=== PATIENT | male | born 1965 | race African-American/Black ===

== ENCOUNTER 2023-04-23 07:54 | Day surgery (SDC) | payer OTHER ==
[2023-04-20 16:34] VITALS: BMI 35.3
[2023-04-23 08:16] VITALS: TEMP 97.5
[2023-04-23 13:13] VITALS: RESP 17
[2023-04-23 13:18] VITALS: BP 158/86; PULSE 65
== END 2023-04-23 12:30 | disposition left against medical advice (07) ==
LOC: FASU-ENDO 07:54
PROVIDERS: ATTEND Internal Medicine Gastroenterology
PROC: 0DB68ZX Excision of Stomach, Via Natural or Artificial Opening Endoscopic, Diagnostic (ICD-10-PCS; 2023-04-23)
PROC: 0DB78ZX Excision of Stomach, Pylorus, Via Natural or Artificial Opening Endoscopic, Diagnostic (ICD-10-PCS; 2023-04-23)
PROC: 0DBM8ZX Excision of Descending Colon, Via Natural or Artificial Opening Endoscopic, Diagnostic (ICD-10-PCS; principal; 2023-04-23 09:17)
DX: Z12.11 Encounter for screening for malignant neoplasm of colon (principal); D12.4 Benign neoplasm of descending colon; K57.30 Diverticulosis of large intestine without perforation or abscess without bleeding; K29.50 Unspecified chronic gastritis without bleeding; R12 Heartburn
CPT/HCPCS: 88305-TC; 88342-TC